=== PATIENT | female | born 1935 | race Caucasian/White ===

== ENCOUNTER 2017-06-26 14:13 | Outpatient (CLI) | payer OTHER ==
[~2017-06-26 14:13] MED LIST: CAPOTEN50 MG PO; GLUCOTROL10 MG PO; HALDOL5 MG/M1; NOVOLOG100 U/ML; REGLAN5 MG/5 ML PO; RESTORIL15 MG PO; RISPERDAL1 MG PO; WELLBUTRIN75 MG PO; [UNRECOGNIZED DRUG - OTHER]
== END 2017-06-26 14:15 | disposition home or self-care (01) ==
LOC: RAD 14:13
DX: K59.00 Constipation, unspecified (principal)

== ENCOUNTER 2018-10-25 10:25 | Inpatient (IN) | payer OTHER ==
[~2018-10-25] VITALS: Ht 147.3 cm; Wt 60.8 kg
[2018-10-25] MEDS ORDERED: SEROQUEL XR300 MG PO (10:49)
[2018-10-25] MEDS ORDERED: DIVALPROEX SOD500 M1 PO (10:50)
[2018-10-25] MEDS ORDERED: FORTAMET500 MG PO (10:50)
[2018-10-25] MEDS ORDERED: ABATINEX680 MG PO (10:51)
--- NOTE | 2018-10-25 10:52 | NUR ---
SE RECIBE PTE FEMENINA DE 83 YRS EN AMBULANCIA QUE REFIERE CONSTRIPACION DESDE HACE VARIOS JEAN.
--- NOTE | 2018-10-25 13:25 | NUR ---
SE RECIBE PTE FEMENINA DE 83 YRS JO CONCIENTE Y TRANQUILA EN COMPANIA DE FAMILIAR PTE ES EVALUADA POR EL BRAYDEN LONGORIA QUIEN ORDENA TRATMAIENTO LA CUAL SE EJECUTA . SE MANTIENE BAJO OBSERVACION POR CAMBIOS.
--- NOTE | 2018-10-25 18:20 | NUR ---
SE RECIBE PTE ALERTA Y ORIENTADA EN PERSONA EN DOMONIQUE [place]. SE COLOCA EN CAMA CON BARANDAS ELEVADAS. SE OBSERVA PTE CON ABDOMEN DISTENDIDO Y TIMPANICO. SE LE INSERTA TNG EN NARE DERECHO SE OBSERVA RESIDUAL GASTRICO Y SE AUSCULTA PATENTICIDAD. SE LE INSERTA BENAVIDES DE MANERA ESTERIL DRENANDO AL MOMENTO 100ML ORINA COLOR AMARILLO CON SEDIMENTACION. SE ORIENTA A FAMILIAR/PTE SOBRE PROCEDIMIENTO MEDICO.
--- NOTE | 2018-10-25 23:14 | NUR ---
PT EN DESCANZO, EN COMPANIA DE FAMILIAR. SE RECIBE EN CAMA CON BARANDAS ELEVADAS Y FRENOS COLOCADOS. HEPARIN LOCK EN MANO DERECHA PATENTE KALYN DE EDEMA Y/O ERITEMA. IVLFUIDS PATENTE. NGT EN NARE DERECHO PATENTE DRENANDO 200ML COLOR PATTI OSCURO POR SUCCION INTERMITENTE BAJO. BENAVIDES PATENTE DRENANDO ORINA COLOR AMARILLO FRANKLYN 200ML AL MOMENTO. PT TRANQUILA Y SIN DIFICULTAD RESPIRATORIA.
--- NOTE | 2018-10-26 06:53 | NUR ---
PT EN DESCANZO. SE LIMPIA BENAVIDES OUT PUT DE 850ML. CANISTER DE SUCCION 400ML. PT TRANQUILA Y SIN DIFICULTAD RESPIRATORIA.
--- NOTE | 2018-10-26 07:00 | NUR ---
PACIENTE ALERTA Y ORIENTADA EN SAWYER JOANNE ESFERAS, PRESENTA BUEN PATRON RESPIRATORIO Y KALYN DE DOLOR. CANALIZADA EN BRAZO LT PATENTE Y KALYN DE S/S DE FLEBITIS E INFILTRACION, RECIBIENDO 0.45% NSS A 125 ML/HR. SONDA URINARIA DRENANDO ORINA AMARILLO FRANKLYN, SONDA NASOGASTRICA INSERTADO EN FOSA NASAL LT, CONECTADA A SUCCION INTERMITENTE BAJA, SE RECIBE CANISTER CON 400 ML DE CONTENIDO GASTRICO COLOR PATTI, ABDOMEN DEPRESIBLE. PENIENTE CONSULTA CON MEDICINA INTERNA E ZAVALA POR ANEMIA (9.7) Y SBO.
== END 2018-11-02 18:45 | disposition home or self-care (01) | DRG 388 ==
LOC: ER 10:25 → MEDI 10-26 10:25
PROVIDERS: ADMIT Internal Medicine
PROC: 3E0F7GC Introduction of Other Therapeutic Substance into Respiratory Tract, Via Natural or Artificial Opening (ICD-10-PCS; principal; 2018-10-26)
PROC: 30233N1 Transfusion of Nonautologous Red Blood Cells into Peripheral Vein, Percutaneous Approach (ICD-10-PCS; 2018-10-27)
DX: K56.41 Fecal impaction (principal); J18.9 Pneumonia, unspecified organism; F31.89 Other bipolar disorder; K56.51 Intestinal adhesions [bands], with partial obstruction; N39.0 Urinary tract infection, site not specified; R78.81 Bacteremia; N28.1 Cyst of kidney, acquired; K44.9 Diaphragmatic hernia without obstruction or gangrene; K57.30 Diverticulosis of large intestine without perforation or abscess without bleeding; E11.9 Type 2 diabetes mellitus without complications; Z79.4 Long term (current) use of insulin; D72.828 Other elevated white blood cell count; N28.89 Other specified disorders of kidney and ureter; K21.9 Gastro-esophageal reflux disease without esophagitis; E86.0 Dehydration; E87.8 Other disorders of electrolyte and fluid balance, not elsewhere classified; Z88.0 Allergy status to penicillin; Z72.0 Tobacco use; R14.0 Abdominal distension (gaseous); B95.7 Other staphylococcus as the cause of diseases classified elsewhere; R09.02 Hypoxemia; D50.8 Other iron deficiency anemias